=== PATIENT | female | born 2000 | race Two or more races ===

== ENCOUNTER 2019-10-16 17:26 | Emergency (ER) | payer BC, OTHER ==
[~2019-10-16] VITALS: Ht 165.1 cm; Wt 81.8 kg
[2019-10-16 17:29] VITALS: BP 132/79
--- NOTE | 2019-10-16 17:52 | NUR ---
PATIENT BROUGHT BACK FROM TRIAGE WITH CHIEF COMPLAINT OF LEFT ANKLE PAIN AFTER "ROLLING" IT TODAY.
--- NOTE | 2019-10-16 18:29 | NUR ---
KATHARINE SMALL AT BEDSIDE FOR EVALUATION
--- NOTE | 2019-10-16 18:54 | NUR ---
REPORT TO ROGER MCKEON
--- NOTE | 2019-10-16 19:30 | NUR ---
SPLINT APPLIED BY TECH, CRUTCHES PROVIDED. PT AWAITING D/C AT THIS TIME
== END 2019-10-16 19:42 | disposition home or self-care (01) ==
LOC: ED 19:30
DX: S82.432A Displaced oblique fracture of shaft of left fibula, initial encounter for closed fracture (principal); W01.0XXA Fall on same level from slipping, tripping and stumbling without subsequent striking against object, initial encounter; Y93.89 Activity, other specified; Y92.89 Other specified places as the place of occurrence of the external cause; Y99.8 Other external cause status
CPT/HCPCS: 29515; 99283